=== PATIENT | male | born 1965 | race Caucasian/White ===

== ENCOUNTER → 2020-06-21 | Outpatient (CLI) | payer OTHER ==
[~2020-06-21] MED LIST: ALBUTEROL2.5 MG/3 M INH; ALBUTEROL2.5 MG/3 M PO; ATORVASTATIN CA20 MG PO; BENZONATATE200 MG PO; BREO ELLIPTA 11 EACH INH; COMBIVENT RESPIM4 GM INH; DITROPAN 5 MG TA5 MG PO; ECOTRIN81 MG PO; FLONASE 0.05% N16 GM; IBUPROFEN800 MG PO; INCRUSE ELLI62.5 MCG INH; K-TAB ER20 MEQ PO; LEVAQUIN750 MG PO; LIPITOR TAB 2020 MG PO; SPIRIVA HANDIH18 MCG INH; SYMBICORT 16010.2 GM INH; VENTOLIN HFA 66.7 GM INH
== END ==
LOC: NM 07:53
DX: C61 Malignant neoplasm of prostate (principal); R91.8 Other nonspecific abnormal finding of lung field
CPT/HCPCS: 78306; A9503; Q9967

== ENCOUNTER → 2020-08-24 | Outpatient (CLI) | payer OTHER | LOC: RAD 13:30 | DX: J84.89 Other specified interstitial pulmonary diseases (principal) | CPT/HCPCS: 71046 ==

== ENCOUNTER → 2021-10-18 | Outpatient (CLI) | payer OTHER | LOC: KOH-I 09:54 | DX: Z72.0 Tobacco use (principal); R91.8 Other nonspecific abnormal finding of lung field | CPT/HCPCS: 71271 ==